=== PATIENT | male | born 1955 | race Caucasian/White ===

== ENCOUNTER 2024-11-14 15:07 | Emergency (ER) | payer MEDICARE ==
[~2024-11-14] VITALS: Ht 170.2 cm; Wt 72.6 kg
[2024-11-14] MEDS ORDERED: FAMOTIDINE/PF INJ 20 MG/2 ML VIAL IV ONE (15:54)
[2024-11-14] MEDS ORDERED: ONDANSETRON HCL/PF 4 MG/2 ML VIAL ONE (15:54)
[2024-11-14] MEDS ORDERED: MECLIZINE HCL 25 MG TABLET ONE (15:54)
[2024-11-14] MEDS: IV NS 0.9% 1,000 ML BAG IV ONE (16:00)
[2024-11-14] MEDS: ONDANSETRON HCL/PF 4 MG/2 ML VIAL IVP ONE (16:02)
[2024-11-14] MEDS: FAMOTIDINE/PF INJ 20 MG/2 ML VIAL IV ONE (16:03)
[2024-11-14 16:04] LABS: PLATELET COUNT (AUTO) 329 K/uL (150-450); RED BLOOD CELL COUNT(AUTO) 4.76 MIL/uL (4.5-6.0); RED CELL DISTRIBUTION WIDTH 13.9 % (11.5-15.0); WHITE BLOOD COUNT (AUTO) 9.8 K/uL (4.3-11.0)
[2024-11-14 16:12] LABS: CALCIUM, SERUM 8.7 mg/dL (8.5-10.1); CREATININE 1.0 mg/dL (0.6-1.3); SODIUM SERUM 135 mmol/L (136-145); UREA NITROGEN, BLOOD 10 mg/dL (7-18)
[2024-11-14 16:24] LABS: ASPARTATE AMINOTRANSFERASE 28 U/L (15-37); NT-PRO BNP 123 pg/mL (0-125); TOTAL PROTEIN, SERUM 7.7 g/dL (6.4-8.2)
[2024-11-14] MEDS: IBUPROFEN 400 MG TABLET PO ONE (16:43)
[2024-11-14] MEDS: MECLIZINE HCL 25 MG TABLET PO ONE (16:43)
[2024-11-14] MEDS ORDERED: oxyCODONE/APAP (5/325 MG) 1 UDTAB TABLET ONE (18:01)
[2024-11-14] MEDS: oxyCODONE/APAP (5/325 MG) 1 UDTAB TABLET PO ONE (18:05)
[2024-11-14 18:43] VITALS: BP 137/70; O2SAT 97
[2024-11-14] MEDS ORDERED: ONDA4TAB5 PO (18:47)
[2024-11-14] MEDS ORDERED: MECL-159 PO (18:47)
== END 2024-11-14 18:49 | disposition home or self-care (01) ==
LOC: ER 15:12
DX: R42 Dizziness and giddiness (principal); R11.2 Nausea with vomiting, unspecified; R51.9 Headache, unspecified; H53.8 Other visual disturbances; Z95.5 Presence of coronary angioplasty implant and graft; Z86.79 Personal history of other diseases of the circulatory system; Z20.822 Contact with and (suspected) exposure to COVID-19
CPT/HCPCS: 99285; 96360; 70450; 71045; 87426; 93005; 87804 ×2; 85025; 80048; 80076; 36415; 84484 ×2; 83880; J8597; J1308; J2405; J7030